=== PATIENT | male | born 1975 | race Hispanic/Latino ===

== ENCOUNTER 2021-03-18 19:14 | Emergency (ER) | payer MEDICARE ==
[~2021-03-18] VITALS: Ht 170.2 cm; Wt 79.4 kg
[2021-03-18] MEDS ORDERED: ACETAMINOPHEN 325 MG TAB PO ONE (20:15)
[2021-03-18 20:24] LABS: BASOPHILS % 0.2 % (0.0-1.0); HEMATOCRIT 39.9 % (38.2-49.6); HEMOGLOBIN 13.5 g/dL (14.0-18.0); LYMPHOCYTES # (AUTO) 0.9 (1.0-3.2); LYMPHOCYTES % 6.3 % (18.0-39.1); MEAN CORPUSCULAR HEMOGLOBIN 30.2 pg (28-32); MEAN CORPUSCULAR HGB CONC 33.8 g/dL (31-35); MEAN CORPUSCULAR VOLUME 89.3 fL (81-99); MONOCYTES # (AUTO) 1.2 (0.2-0.8); MONOCYTES % 8.7 % (4.4-11.3); NEUTROPHILS % 84.1 % (38.7-80.0); PLATELET COUNT 160 x10e3/uL (140-360); RED BLOOD COUNT 4.47 x10e6/uL (4.3-5.7); RED CELL DISTRIBUTION WIDTH 12.5 % (11.7-14.4)
[2021-03-18 20:38] LABS: ALANINE AMINOTRANSFERASE 44 IU/L (0-55); ALBUMIN 4.2 g/dL (3.5-5.0); ALBUMIN/GLOBULIN RATIO 1.3 (0.8-2.0); ALKALINE PHOSPHATASE 42 IU/L (40-150); ANION GAP 14.6 mmol/L (8-16); BLOOD UREA NITROGEN 13 mg/dL (7-26); BUN/CREATININE RATIO 13 (6-25); CALCIUM 9.1 mg/dL (8.4-10.2); CARBON DIOXIDE 22 mmol/L (22-29); CHLORIDE 101 mmol/L (98-107); CREATININE, SERUM 1.02 mg/dL (0.72-1.25); EST GLOMERULAR FILTRATION RATE > 60 ML/MIN (60-); GLUCOSE 143 mg/dL (74-118); POTASSIUM 3.6 mmol/L (3.5-5.1); SODIUM 134 mmol/L (136-145)
[2021-03-18] MEDS ORDERED: SODIUM CHLORIDE 0.9% 500ML 500 ML IV ONE (20:45)
[2021-03-18 22:05] LABS: CLARITY,URINE CLOUDY (CLEAR); COLOR,URINE AMBER (YELLOW); KETONES,URINE NEGATIVE (NEGATIVE); LEUKOCYTE ESTERASE ,URINE LARGE (NEGATIVE); NITRITE,URINE NEGATIVE (NEGATIVE); PROTEIN,URINE DIPSTICK 2+ (NEGATIVE)
[2021-03-18 22:10] LABS: AMORPHOUS SEDIMENT,URINE FEW (FEW); BACTERIA,URINE MODERATE /HPF; EPITHELIAL CELLS,URINE FEW /LPF; WBC,URINE (MAN) >50 /HPF (0-5)
[2021-03-18] MEDS ORDERED: CEFTRIAXONE SOD 1 GM VIAL IV ONE (22:15)
[2021-03-18] MEDS ORDERED: CEFTRIAXONE SOD 1 GM in SODIUM CHLORIDE 0.9% 50ML 50 ML IV ONE (22:45)
[2021-03-18 23:37] VITALS: BP 126/80
== END 2021-03-18 23:32 | disposition home or self-care (01) ==
LOC: ER 19:45
DX: N39.0 Urinary tract infection, site not specified (principal); R50.9 Fever, unspecified; R51.9 Headache, unspecified
CPT/HCPCS: 36415; 71045; 80053; 81001; 83605; 85025; 87040; 87086; 87186; 99284; J0696; J7040; U0002